=== PATIENT | female | born 1975 | race Caucasian/White ===

== ENCOUNTER → 2016-12-05 | Outpatient (CLI) | payer SELFPAY ==
[2016-12-06 10:17] VITALS: BP 133/82
--- NOTE | 2016-12-06 10:17 | Urgent Care T Sheet Gen (E) ---
Intake General Temperature (Fahrenheit): 99.1 Pulse: 110 Blood Pressure Systolic: 133 Blood Pressure Diastolic: 82 Respirations: 20 SPO2: 100 Description of Symptoms Patient presents complaining of chronic pain with acute flare up last night and anxiety due to pain. Patient had been a long time patient of Dr Maverick Powell. States she has been on indomethacin and MS Contin for 10+ years. Dr Powell fired her approx 2 months ago. Patient states she has been on MS Contin due to ovarian cysts. States she had a partial hysterectomy years ago. Doesn't see an OB-POLICY CHANGE CLERK. Went to [facility] earlier today to be seen by a new PCP however she states "a manager sap came to the waiting room and refused service without explanation". Patient states her pain flared up last night and the Tylenol and Ibuprofen she has been taking isn't helping. She is here requesting a PCP and pain management. Respiratory Constitutional Symptoms: No syptoms reported All Other Systems Reviewed Remaining Systems: All other systems reviewed with negative findings Physical Exam Physical Exam General Appearance: Mild distress (anxious) Departure Urgent Care Impression Impression: Primary Impression: Chronic pain Qualified Code: G89.4 - Chronic pain syndrome Departure Departed Disposition: To [facility] ED Condition: Stable Additional Instructions: Long discussion with patient. Told her we don't prescribe narcotics or anxiety meds at Urgent Care. Instructed her to present to the ER. Regarding her PCP, patient was given new patient paperwork for Dr Batres's office and she was encouraged to return completed forms. She will most likely need a pain management doctor for her MS Contin. End of report . JEZ FIGUEROA Dec 06, 2016 10:17
== END ==
LOC: MHUC 16:51
PROVIDERS: ATTEND Physician Assistant
DX: G89.4 Chronic pain syndrome (principal)